=== PATIENT | male | born 1985 | race American Indian/Alaskan Native ===

== ENCOUNTER 2018-03-28 04:41 | Emergency (ER) | payer SELFPAY ==
[2018-03-28 04:48] VITALS: O2SAT 98
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
--- NOTE | 2018-03-28 07:09 | ED PDOC ---
- ECG O2 Sat by Pulse Oximetry: 98 Medical Decision Making Medical Decision Makin:00 -Patient endorsed to me by Dr. Braga, pending crisis evaluation. 8am per Dr Waddell patient cleared for discharge. Ativan 0.5mg PO BID #3 tabs prescribed Recommended outpatient followup for further treatment Disposition - Clinical Impression Clinical Impression: Anxiety - POA Present On Arrival: None - Disposition Referrals: [facility] [Outside] Disposition: Routine/Home Disposition Time: 08:01 Condition: STABLE Additional Instructions: See therapist or psychiatrist for further testing. Return to ER for any new or worsening symptoms. Prescriptions: Lorazepam [Ativan] 0.5 mg PO BID PRN #3 tab PRN Reason: Anxiety Instructions: Anxiety, Adult (DC) Forms: [facility] (Luxembourgish)
[2018-03-28 11:36] VITALS: BP 128/84; PULSE 80; RESP 16; TEMP 98.2
== END 2018-03-28 09:30 | disposition home or self-care (01) ==
LOC: H.ER 04:41
DX: F41.9 Anxiety disorder, unspecified (principal)

== ENCOUNTER 2018-06-11 00:10 | Inpatient (IN) | payer SELFPAY ==
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
[2018-06-11 02:45] LABS: BASO # 0.1 K/uL (0.0-0.2); BASO % 0.6 % (0.0-2.0); EOS # 0.1 K/uL (0.0-0.7); EOS % 1.4 % (0.0-4.0); HEMOGLOBIN 13.8 g/dL (12.0-18.0); LYMPH # 2.1 K/uL (1.0-4.3); LYMPH % 23.5 % (20.0-40.0); MEAN CELL VOLUME 92.3 fl (80.0-94.0); MEAN CORPUSCULAR HEMOGLOBIN 31.5 pg (27.0-31.0); MEAN CORPUSCULAR HGB CONC 34.1 g/dL (33.0-37.0); MEAN PLATELET VOLUME 7.9 fl (7.2-11.7); MONO # 0.8 K/uL (0.0-0.8); MONO % 8.3 % (0.0-10.0); NEUT % 66.2 % (50.0-75.0); RBC 4.38 Mil/uL (4.40-5.90); RED CELL DISTRIBUTION WIDTH 12.8 % (11.5-14.5); WHITE BLOOD COUNT 9.1 K/uL (4.8-10.8)
[2018-06-11 02:53] LABS: ALB/GLOB RATIO 1.2 (1.0-2.1); ALBUMIN 3.4 g/dL (3.5-5.0); ALT/SGPT 26 U/L (21-72); AST/SGOT 38 U/L (17-59); BLOOD UREA NITROGEN 16 mg/dl (9-20); CALCIUM 8.6 mg/dL (8.4-10.2); GFR NON-AFRICAN AMERICAN > 60
[2018-06-11 03:59] LABS: URINE BILIRUBIN NEGATIVE (NEGATIVE); URINE BLOOD NEGATIVE (NEGATIVE); URINE CLARITY SLIGHTY-CLOUDY (Clear); URINE COLOR YELLOW (YELLOW); URINE GLUCOSE (UA) NEG (Normal); URINE LEUKOCYTE ESTERASE NEG Leu/uL (Negative); URINE PROTEIN NEGATIVE (NEGATIVE)
[2018-06-11 04:16] LABS: BARBITURATES, UR NEGATIVE (NEGATIVE); BENZODIAZEPINES, UR NEGATIVE (NEGATIVE); OPIATES, UR NEGATIVE (NEGATIVE); PHENCYCLIDINE, UR NEGATIVE (NEGATIVE)
[2018-06-11] MEDS ORDERED: DiphenhydrAMINE 50 mg/ml Inj IM PRN (05:21)
[2018-06-11] MEDS ORDERED: Alum-Mag Hydrox-Simethicone Susp (30 mL) PO PRN (05:21)
[2018-06-11] MEDS ORDERED: Magnesium Hydroxide Susp 30 ml UD PO PRN (05:21)
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
[2018-06-11 09:17] LABS: LDL CHOLESTEROL 118 mg/dL (0-129)
[2018-06-11 09:21] LABS: T4 7.77 ug/dl (5.5-11.0)
[2018-06-11 09:35] LABS: T3 1.24 nmol/L (1.49-2.60)
[2018-06-11 09:44] LABS: BLOOD UREA NITROGEN 15 mg/dl (9-20); CALCIUM 8.8 mg/dL (8.4-10.2); GFR NON-AFRICAN AMERICAN > 60; HDL CHOLESTEROL 70 MG/DL (30-70)
--- NOTE | 2018-06-11 10:30 | RAD ---
Date of service: 06/11/2018 HISTORY: admit COMPARISON: No prior. FINDINGS: LUNGS: No active pulmonary disease. PLEURA: No significant pleural effusion identified, no pneumothorax apparent. CARDIOVASCULAR: Normal. OSSEOUS STRUCTURES: No significant abnormalities. VISUALIZED UPPER ABDOMEN: Normal. OTHER FINDINGS: None. IMPRESSION: No acute cardiopulmonary disease appreciated.
--- NOTE | 2018-06-11 12:31 | CARD ---
APPROVED REPORT Date of service: 06/11/2018 EKG Measurement Heart [id number] <Conclusion> Normal sinus rhythm Normal ECG
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
[2018-06-11 21:26] VITALS: O2SAT 99
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
[2018-06-14 09:13] VITALS: RESP 18
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
[2018-06-17 10:14] VITALS: PULSE 83; TEMP 98.6
[2018-06-17 10:39] VITALS: BP 151/59
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
== END 2018-06-17 15:12 | disposition home or self-care (01) | DRG 882 ==
LOC: H.ER 00:10 → H.ERHOLD 02:04 → H.PSYCH 04:52
PROVIDERS: ADMIT Psychiatry & Neurology Psychiatry; ATTEND Psychiatry & Neurology Psychiatry
PROC: GZHZZZZ Group Psychotherapy (ICD-10-PCS; principal; 2018-06-11)
PROC: GZ58ZZZ Individual Psychotherapy, Cognitive-Behavioral (ICD-10-PCS; 2018-06-11)
DX: F43.24 Adjustment disorder with disturbance of conduct (principal); F63.9 Impulse disorder, unspecified; F41.1 Generalized anxiety disorder; F90.9 Attention-deficit hyperactivity disorder, unspecified type; G47.00 Insomnia, unspecified; R45.850 Homicidal ideations; Z79.899 Other long term (current) drug therapy

== ENCOUNTER 2018-06-28 10:07 | Emergency (ER) | payer SELFPAY ==
[2018-06-28 10:19] VITALS: BP 128/77; PULSE 92; RESP 20; TEMP 98.2; O2SAT 98
[2018-06-28 10:20] VITALS: BMI 20.7
[2018-06-28 12:20] LABS: BASO % 0.3 % (0.0-2.0); EOS # 0.1 K/uL (0.0-0.7); HEMOGLOBIN 14.9 g/dL (12.0-18.0); LYMPH # 1.5 K/uL (1.0-4.3); LYMPH % 13.3 % (20.0-40.0); MEAN CELL VOLUME 91.5 fl (80.0-94.0); MEAN CORPUSCULAR HEMOGLOBIN 32.3 pg (27.0-31.0); MEAN CORPUSCULAR HGB CONC 35.3 g/dL (33.0-37.0); MEAN PLATELET VOLUME 7.6 fl (7.2-11.7); MONO % 9.4 % (0.0-10.0); NEUT # 8.4 K/uL (1.8-7.0); NRBC % 0.2 % (0.0-0.0); RBC 4.6 Mil/uL (4.40-5.90); RED CELL DISTRIBUTION WIDTH 12.8 % (11.5-14.5)
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
[2018-06-28 12:49] LABS: SQUAMOUS EPITHIAL < 1 /hpf (0-5); URINE BACTERIA RARE (<OCC); URINE BILIRUBIN NEGATIVE (NEGATIVE); URINE BLOOD NEGATIVE (NEGATIVE); URINE CLARITY SLIGHTY-CLOUDY (Clear); URINE COLOR YELLOW (YELLOW); URINE GLUCOSE (UA) NEG (Normal); URINE LEUKOCYTE ESTERASE NEG Leu/uL (Negative); URINE PROTEIN NEGATIVE (NEGATIVE)
[2018-06-28 12:52] LABS: ALB/GLOB RATIO 1.1 (1.0-2.1); ALBUMIN 3.7 g/dL (3.5-5.0); ALT/SGPT 27 U/L (21-72); AST/SGOT 35 U/L (17-59); BLOOD UREA NITROGEN 12 mg/dl (9-20); CALCIUM 8.9 mg/dL (8.4-10.2); GFR AFRICAN-AMERICAN > 60; GFR NON-AFRICAN AMERICAN > 60
[2018-06-28 13:13] LABS: BARBITURATES, UR NEGATIVE (NEGATIVE); BENZODIAZEPINES, UR NEGATIVE (NEGATIVE); OPIATES, UR NEGATIVE (NEGATIVE); PHENCYCLIDINE, UR NEGATIVE (NEGATIVE)
== END 2018-06-28 13:31 | disposition home or self-care (01) ==
LOC: H.ER 10:07
DX: F41.1 Generalized anxiety disorder (principal); F32.9 Major depressive disorder, single episode, unspecified
CPT/HCPCS: 80053; 81003; 85025; 99283; G0480

== ENCOUNTER 2018-08-15 14:34 | Inpatient (IN) | payer MEDICAID ==
[2018-08-15 14:34] VITALS: BMI 20.7
--- NOTE | 2018-08-15 15:13 | ED PDOC ---
HPI: Psych/Substance Abuse Chief Complaint (Provider): Psychiatric Evaluation History Per: Patient History/Exam Limitations: no limitations Onset/Duration Of Symptoms: Days Current Symptoms Are (Timing): Still Present Suicide/Self Injury Attempted (Context): None Associated Symptoms: Anxiety, Depression, Suicidal Thoughts Involuntary Hold By: None Additional History Per: Prior Records Additional Complaint(s): 33 y/o male with PMHx of anxiety presents to the ED complaining of suicidal ideation. Patient states that yesterday his mom . Since then he has been feeling depressed and anxious. Initially patient was seen at [facility] and given a shot of Ativan and PO Xanax. Symptoms returned when he was at home, prompting him to go to [facility], where he was discharged without any medication. Patient states he is still feeling suicidal. Reports he wants to jump off a building. Otherwise he denies any homicidal ideation or hallucinations. He admits that current symptoms are consistent with prior episodes of anxiety. <Saul Dias E - Last Filed: 08/15/18 23:39> <Poornima Casey F - Last Filed: 08/16/18 15:42> Time Seen by Provider: 08/15/18 14:47 Chief Complaint (Nursing): Psychiatric Evaluation Supervising Attending Note - Attestation: I have personally seen and examined this patient.: No I have reviewed all pertinent clinical information, including history, physical exam and plan: Yes <Poornima Casey F - Last Filed: 08/16/18 15:42> Past Medical History Reviewed: Historical Data, Nursing Documentation, Vital Signs Vital Signs: Last Vital Signs Temp 98 F 08/15/18 14:39 Pulse 119 H 08/15/18 14:39 Resp 16 08/15/18 14:39 BP 145/94 H 08/15/18 14:39 Pulse Ox 100 08/15/18 14:39 - Medical History PMH: Anxiety, Depression Denies: Diabetes, Hepatitis, HIV, HTN, Chronic Kidney Disease, Seizures, Sexually Transmitted Disease - Family History Family History: States: Unknown Family Hx - Social History Alcohol: Social Drugs: Denies - Immunization History Hx Tetanus Toxoid Vaccination: Yes Hx Influenza Vaccination: No Hx Pneumococcal Vaccination: No <Saul Dias - Last Filed: 08/15/18 23:39> Vital Signs: Last Vital Signs Temp 97.3 F L 08/16/18 09:00 Pulse 69 08/16/18 09:00 Resp 18 08/16/18 09:00 BP 127/86 08/16/18 09:00 Pulse Ox 100 08/15/18 23:39 <Poornima Casey F - Last Filed: 08/16/18 15:42> - Home Medications Home Medications: Ambulatory Orders Medication Instructions Recorded Methylphenidate HCl [Concerta] 54 mg PO DAILY 07/01/18 Escitalopram [Lexapro] 20 mg PO DAILY 08/15/18 - Allergies Allergies/Adverse Reactions: Allergies Allergy/AdvReac Type Severity Reaction Status Date / Time No Known Allergies Allergy Verified 08/15/18 13:19 Review of Systems ROS Statement: Except As Marked, All Systems Reviewed And Found Negative Constitutional: Negative for: Fever Cardiovascular: Negative for: Chest Pain Respiratory: Negative for: Shortness of Breath Gastrointestinal: Negative for: Nausea, Vomiting Neurological: Negative for: Weakness, Headache Psych: Positive for: Anxiety, Depression, Suicidal ideation. Negative for: Othe r (homicidal ideation, hallucinations) <Saul Dias - Last Filed: 08/15/18 23:39> Physical Exam - Reviewed Nursing Documentation Reviewed: Yes Vital Signs Reviewed: Yes - Physical Exam Appears: Positive for: Non-toxic, No Acute Distress Head Exam: Positive for: ATRAUMATIC, NORMOCEPHALIC Skin: Positive for: Normal Color, Warm, Dry Eye Exam: Positive for: Normal appearance Neck: Positive for: Normal, Painless ROM Cardiovascular/Chest: Positive for: Other (Tachycardic, regular rhythm). Negative for: Murmur Respiratory: Positive for: Normal Breath Sounds. Negative for: Accessory Muscle Use, Respiratory Distress Gastrointestinal/Abdominal: Positive for: Soft. Negative for: Tenderness, Distended Extremity: Positive for: Normal ROM. Negative for: Pedal Edema, Calf Tenderness Neurologic/Psych: Positive for: Alert, Oriented (x3), Other (Crying, appears anxious) <Saul Dias - Last Filed: 08/15/18 23:39> - Laboratory Results Result Diagrams: 08/15/18 18:00 08/15/18 18:00 - ECG ECG: Positive for: Interpreted By Me ECG Rhythm: Positive for: Sinus Rhythm. Negative for: ST/T Changes Rate: 86 O2 Sat by Pulse Oximetry: 100 (RA) Pulse Ox Interpretation: Normal - Progress ED Course And Treament: attraction worker discussed w/ Dr. Waddell, patient will be admitted for depression. Labs ordered. <Saul Dias - Last Filed: 08/15/18 23:39> - Laboratory Results Result Diagrams: 08/15/18 18:00 08/15/18 18:00 <Poornima Casey F - Last Filed: 08/16/18 15:42> Medical Decision Making Medical Decision Making: Impression: Psychiatric evaluation Initial Plan: --Urine drug screen --Crisis evaluation --Placed on 1:1 observation as per suicide precautions Scribe Attestation: Documented by Keren Abraham, acting as a scribe for Saul Dias PA-C. Provider Scribe Attestation: All medical record entries made by the Scribe were at my direction and personally dictated by me. I have reviewed the chart and agree that the record accurately reflects my personal performance of the history, physical exam, medical decision making, and the department course for this patient. I have also personally directed, reviewed, and agree with the discharge instructions and disposition. <Saul Dias - Last Filed: 08/15/18 23:39> Disposition - Patient ED Disposition Is Patient to be Admitted: Yes Counseled Patient/Family Regarding: Diagnosis - Disposition Disposition Time: 19:23 - Pt Status Changed To: Hospital Disposition Of: Inpatient - Admit Certification Admit to Inpatient:: After my assessment, the patient will require hospitalization for at least two midnights. This is because of the severity of symptoms shown, intensity of services needed, and/or the medical risk in this patient being treated as an outpatient. - POA Present On Arrival: None <Saul Dias - Last Filed: 08/15/18 23:39> <Poornima Casey - Last Filed: 08/16/18 15:42> - Clinical Impression Clinical Impression: Depression - Disposition Condition: STABLE - PA / NURSE RECRUITER / Resident Statement MD/DO has reviewed & agrees with the documentation as recorded. <Saul Dias - Last Filed: 08/15/18 23:39>
[2018-08-15 16:53] LABS: BENZODIAZEPINES, UR NEGATIVE (NEGATIVE)
[2018-08-15 16:54] LABS: BARBITURATES, UR NEGATIVE (NEGATIVE); OPIATES, UR NEGATIVE (NEGATIVE); PHENCYCLIDINE, UR NEGATIVE (NEGATIVE)
[2018-08-15 18:10] LABS: BASO # 0.1 K/uL (0.0-0.2); BASO % 0.9 % (0.0-2.0); EOS # 0.1 K/uL (0.0-0.7); EOS % 0.8 % (0.0-4.0); HEMOGLOBIN 16.9 g/dL (12.0-18.0); LYMPH % 21.9 % (20.0-40.0); MEAN CELL VOLUME 92.3 fl (80.0-94.0); MEAN CORPUSCULAR HEMOGLOBIN 31.6 pg (27.0-31.0); MEAN CORPUSCULAR HGB CONC 34.3 g/dL (33.0-37.0); MONO # 0.7 K/uL (0.0-0.8); MONO % 7.4 % (0.0-10.0); NEUT # 6.3 K/uL (1.8-7.0); RBC 5.36 Mil/uL (4.40-5.90); RED CELL DISTRIBUTION WIDTH 12.8 % (11.5-14.5); WHITE BLOOD COUNT 9.1 K/uL (4.8-10.8)
[2018-08-15 18:17] LABS: ALB/GLOB RATIO 1.1 (1.0-2.1); ALT/SGPT 52 U/L (21-72); AST/SGOT 40 U/L (17-59); BLOOD UREA NITROGEN 7 mg/dl (9-20); CALCIUM 9.6 mg/dL (8.4-10.2); GFR NON-AFRICAN AMERICAN > 60
--- NOTE | 2018-08-15 19:02 | RAD ---
Date of service: 08/15/2018 HISTORY: clearance COMPARISON: Chest radiograph dated 06/11/2018. FINDINGS: LUNGS: No active pulmonary disease. PLEURA: No significant pleural effusion identified, no pneumothorax apparent. CARDIOVASCULAR: Normal. OSSEOUS STRUCTURES: No significant abnormalities. VISUALIZED UPPER ABDOMEN: Normal. OTHER FINDINGS: None. IMPRESSION: No active disease.
[2018-08-15] MEDS ORDERED: Alum-Mag Hydrox-Simethicone Susp (30 mL) PO PRN (22:24)
[2018-08-15] MEDS ORDERED: Magnesium Hydroxide Susp 30 ml UD PO PRN (22:24)
--- NOTE | 2018-08-15 22:46 | PCM.BM ---
Treatment Plan Problems - Problems identified on initial assessmt Altered Sleep Pattern Date Initiated: 08/15/18 Time Initiated: 22:45 Assessment reference: NA Status: Active Treatment assets and liabiliti Patient Assests: cooperative, motivated, ADL independent, physically healthy, negotiates basic needs, cognitively intact Patient Liabilities: other ( of the mother) - Milieu Protocol Maintain good personal hygiene: daily Remind patient to perform daily oral care, every shift Encourage regular showers, every shift Assist patient to perform ADL's Conduct patient checks and document Observation sheet: Q15 minutes Maintain personal safety: every shift Educate patient to report safety concerns to staff, every shift Monitor environment for contraband/sharps Medication safety: Monitor for expected outcome, potential side effects: every shift, Assess barriers to learning: every shift, Assess readiness for medication education: every shift
[2018-08-15 23:40] VITALS: O2SAT 100
--- NOTE | 2018-08-16 08:36 | CARD ---
APPROVED REPORT Date of service: 08/15/2018 EKG Measurement Heart [id number] <Conclusion> Normal sinus rhythm Normal ECG
[2018-08-16 08:58] LABS: T4 6.07 ug/dl (5.5-11.0)
--- NOTE | 2018-08-16 14:37 | CP.PCM.CON ---
History of Present Illness - History of Present Illness History of Present Illness: Medical clearance for psychiatric patient. cc: hemorrhoids and left axilla rash HPI: 33 yo pmh none here for psychiatric condition complaining of right axilla rash and itching. He has had this for 1 week. He denies recent shaving of the area. Last time he shaved his left arm axilla was 1 year ago. He has not had this problem before. He denies fever, chills. He denies draining at the site. He does have tenderness and itching. PMH: none PSH: hernia age 4 months FH: mother and father HTN Father also has DM-2 SH: smoker currently cigs Counseled to quit by me social alcohol no drugs Allergies: nkda Meds: concerta Review of Systems - Review of Systems All systems: reviewed and no additional remarkable complaints except Review of Systems: except HPI Past Patient History - Infectious Disease Hx of Infectious Diseases: None - Past Medical History & Family History Past Medical History?: No - Past Social History Smoking Status: Heavy Smoker > 10 Cigarettes Daily Alcohol: Social Drugs: Denies - CARDIAC Hx Cardiac Disorders: No Hx Hypertension: No - PULMONARY Hx Tuberculosis: No - NEUROLOGICAL HX Cerebrovascular Accident: No Hx Seizures: No - HEENT Hx HEENT Problems: No - RENAL Hx Chronic Kidney Disease: No - ENDOCRINE/METABOLIC Hx Endocrine Disorders: No - HEMATOLOGICAL/ONCOLOGICAL Hx Cancer: No Hx Human Immunodeficiency Virus (HIV): No - INTEGUMENTARY Hx Dermatological Problems: No - MUSCULOSKELETAL/RHEUMATOLOGICAL Hx Musculoskeletal Disorders: No - GASTROINTESTINAL Hx Gastrointestinal Disorders: No - GENITOURINARY/GYNECOLOGICAL Hx Sexually Transmitted Disorders: No - PSYCHIATRIC Hx Anxiety: Yes Hx Depression: Yes - SURGICAL HISTORY Hx Surgeries: Yes Hx Herniorrhaphy: Yes (4 months old) - ANESTHESIA Hx Anesthesia: Yes Hx Anesthesia Reactions: No Hx Malignant Hyperthermia: No Meds Allergies/Adverse Reactions: Allergies Allergy/AdvReac Type Severity Reaction Status Date / Time No Known Allergies Allergy Verified 08/15/18 13:19 - Medications Medications: Current Medications Acetaminophen (Tylenol 325mg Tab) 650 mg PO Q4 PRN PRN Reason: Pain, moderate (4-7) Al Hydrox/Mg Hydrox/Simethicone (Maalox Plus 30 Ml) 30 ml PO Q4 PRN PRN Reason: Dyspepsia Diphenhydramine HCl (Benadryl) 50 mg PO HS PRN PRN Reason: insomnia Last Admin: 08/15/18 22:56 Dose: 50 mg Escitalopram Oxalate (Lexapro) 10 mg PO DAILY ADAN Last Admin: 08/16/18 12:08 Dose: 10 mg Lorazepam (Ativan) 1 mg PO Q8 PRN PRN Reason: Anxiety/Agitation Magnesium Hydroxide (Milk Of Magnesia) 30 ml PO HS PRN PRN Reason: Constipation Nicotine (Nicoderm Cq) 1 patch TD DAILY ADAN Last Admin: 08/16/18 12:07 Dose: 1 patch Trimethoprim/Sulfamethoxazole (Bactrim Ds Tab) 1 tab PO Q12 ADAN; Protocol Physical Exam - Constitutional Appears: Well, No Acute Distress - Head Exam Head Exam: ATRAUMATIC, NORMAL INSPECTION - Eye Exam Eye Exam: Normal appearance - ENT Exam ENT Exam: Mucous Membranes Moist - Respiratory Exam Respiratory Exam: Clear to Auscultation Bilateral, NORMAL BREATHING PATTERN. ab sent: Rales, Rhonchi, Wheezes - Cardiovascular Exam Cardiovascular Exam: REGULAR RHYTHM, +S1, +S2 - GI/Abdominal Exam GI & Abdominal Exam: Normal Bowel Sounds, Soft. absent: Tenderness - Extremities Exam Additional comments: left axila - redness and 1-1.5 cm tender firm nodule with associated redness no drainage - Back Exam Back exam: NORMAL INSPECTION - Neurological Exam Neurological exam: Alert, Oriented x3 - Psychiatric Exam Psychiatric exam: Normal Affect - Skin Skin Exam: Normal Color Results - Vital Signs Recent Vital Signs: Last Vital Signs Temp 97.3 F L 08/16/18 09:00 Pulse 69 08/16/18 09:00 Resp 18 08/16/18 09:00 BP 127/86 08/16/18 09:00 Pulse Ox 100 08/15/18 23:39 - Labs Result Diagrams: 08/15/18 18:00 08/15/18 18:00 Labs: Laboratory Results - last 24 hr 08/15/18 08/15/18 08/15/18 15:41 18:00 18:00 WBC 9.1 RBC 5.36 Hgb 16.9 D Hct 49.5 MCV 92.3 MCH 31.6 H MCHC 34.3 RDW 12.8 Plt Count 335 MPV 8.0 Neut % (Auto) 69.0 Lymph % (Auto) 21.9 Morgan % (Auto) 7.4 Eos % (Auto) 0.8 Baso % (Auto) 0.9 Neut # (Auto) 6.3 Lymph # (Auto) 2.0 Morgan # (Auto) 0.7 Eos # (Auto) 0.1 Baso # (Auto) 0.1 Sodium 139 Potassium 3.9 Chloride 102 Carbon Dioxide 29 Anion Gap 12 BUN 7 L Creatinine 0.7 L Est GFR ( Amer) > 60 Est GFR (Non-Af Amer) > 60 Random Glucose 85 Hemoglobin A1c Calcium 9.6 Total Bilirubin 0.5 AST 40 ALT 52 Alkaline Phosphatase 72 Total Protein 7.7 Albumin 4.0 Globulin 3.7 Albumin/Globulin Ratio 1.1 Triglycerides Cholesterol LDL Cholesterol Direct HDL Cholesterol Thyroxine (T4) TSH 3rd Generation Urine Opiates Screen Negative Urine Methadone Screen Negative Ur Barbiturates Screen Negative Ur Phencyclidine Scrn Negative Ur Amphetamines Screen Negative U Benzodiazepines Scrn Negative U Oth Cocaine Metabols Negative U Cannabinoids Screen Negative Alcohol, Quantitative < 10 08/16/18 08/16/18 08:10 08:10 WBC RBC Hgb Hct MCV MCH MCHC RDW Plt Count MPV Neut % (Auto) Lymph % (Auto) Morgan % (Auto) Eos % (Auto) Baso % (Auto) Neut # (Auto) Lymph # (Auto) Morgan # (Auto) Eos # (Auto) Baso # (Auto) Sodium Potassium Chloride Carbon Dioxide Anion Gap BUN Creatinine Est GFR ( Amer) Est GFR (Non-Af Amer) Random Glucose Hemoglobin A1c 5.2 Calcium Total Bilirubin AST ALT Alkaline Phosphatase Total Protein Albumin Globulin Albumin/Globulin Ratio Triglycerides 137 D Cholesterol 236 H LDL Cholesterol Direct 115 HDL Cholesterol 78 H Thyroxine (T4) 6.07 TSH 3rd Generation 0.62 Urine Opiates Screen Urine Methadone Screen Ur Barbiturates Screen Ur Phencyclidine Scrn Ur Amphetamines Screen U Benzodiazepines Scrn U Oth Cocaine Metabols U Cannabinoids Screen Alcohol, Quantitative Assessment & Plan - Assessment and Plan (Free Text) Assessment: 33 yo male pmh none here for psychiatric condition 1. left axilla carbuncle- without fever, leucocytosis start bactrim no allergies and will cover mrsa 2. hemorrhoids anusol 3 Psychiatric conditions management by psych
[2018-08-16] MEDS: Tmp-Smz 800 mg-160 mg DS Tab PO SCH ×2 (15:12→21:01)
[2018-08-16] MEDS: Hydrocortisone 2.5% (Rectal) CREAM PR SCH (17:58)
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
--- NOTE | 2018-08-17 08:49 | PCM.PYCHPN ---
Psychiatric Progress Note - Psychiatric Progress Note Patient seen today, length of contact: pt seen and evaluated. Patient Chief Complaint: pt is less depressed and less anxious and denies side efects to meds .pt still has poor insight and need further stabilization. Medication Change: No Medical Record Reviewed: Yes Mental Status Examination - Cognitive Function Orientation: Person, Place, Situation, Time Memory: Intact Attention: Poor Concentration: Poor Association: WNL Fund of Knowledge: WNL - Mood Mood: Depressed - Affect Affect: Constricted - Formal Thought Process Formal Thought Process: No Impairment - Suicidal Ideation Suicidal Ideation: No - Homicidal Ideation Homicidal Ideation: No Goal/Treatment Plan - Goal/Treatment Plan Progress Toward Problem(s) and Goals/Treatment Plan: will continue to titrate meds to stabilize the ot and engage pt in therapy
[2018-08-17] MEDS: Tmp-Smz 800 mg-160 mg DS Tab PO SCH ×2 (09:57→21:11)
[2018-08-17] MEDS: Hydrocortisone 2.5% (Rectal) CREAM PR SCH ×2 (09:58→16:18)
[2018-08-18] MEDS: Tmp-Smz 800 mg-160 mg DS Tab PO SCH (09:03)
[2018-08-18] MEDS: Hydrocortisone 2.5% (Rectal) CREAM PR SCH ×2 (09:06→16:54)
--- NOTE | 2018-08-18 14:09 | PCM.PYCHPN ---
Psychiatric Progress Note - Psychiatric Progress Note Patient seen today, length of contact: pt seen and evaluated. Patient Chief Complaint: pt has been more irritible and more labile and getting angry and wants to be d/c .pt still has poor insight and need further stabilization. Medication Change: No Medical Record Reviewed: Yes Mental Status Examination - Cognitive Function Orientation: Person, Place, Situation, Time Memory: Intact Attention: Poor Concentration: Poor Association: WNL Fund of Knowledge: WNL - Mood Mood: Depressed - Affect Affect: Constricted - Formal Thought Process Formal Thought Process: No Impairment - Suicidal Ideation Suicidal Ideation: No - Homicidal Ideation Homicidal Ideation: No Goal/Treatment Plan - Goal/Treatment Plan Progress Toward Problem(s) and Goals/Treatment Plan: will continue to titrate meds and increase trileptal to 300 mg bid to stabilize the pt and engage pt in therapy
[2018-08-18 15:51] VITALS: PULSE 71; RESP 20; TEMP 97.7
[2018-08-18 15:52] VITALS: BP 134/82
== END 2018-08-18 11:40 | disposition home or self-care (01) | DRG 426 ==
LOC: H.ER 14:34 → H.ERHOLD 19:23 → H.PSYCH 21:54
PROVIDERS: ADMIT Psychiatry & Neurology Psychiatry; ATTEND Psychiatry & Neurology Psychiatry
PROC: GZHZZZZ Group Psychotherapy (ICD-10-PCS; principal; 2018-08-15)
PROC: GZ51ZZZ Individual Psychotherapy, Behavioral (ICD-10-PCS; 2018-08-15)
DX: F32.9 Major depressive disorder, single episode, unspecified (principal); F90.9 Attention-deficit hyperactivity disorder, unspecified type; R45.851 Suicidal ideations; F41.9 Anxiety disorder, unspecified; Z79.899 Other long term (current) drug therapy

== ENCOUNTER 2018-11-18 20:09 | Emergency (ER) | payer MEDICAID, OTHER ==
[2018-11-18 20:10] VITALS: BMI 20.7
--- NOTE | 2018-11-18 20:54 | ED PDOC ---
Lower Extremity Pain/Injury Time Seen by Provider: 11/18/18 20:20 Chief Complaint (Nursing): Lower Extremity Problem/Injury Chief Complaint (Provider): Right leg swelling History Per: Patient History/Exam Limitations: no limitations Onset/Duration Of Symptoms: Days Current Symptoms Are (Timing): Still Present Additional Complaint(s): 33 year old male presents to the ED for an evaluation of swelling on his right leg and foot onset one week ago. Denies any trauma, injury or fall. PMD: No family provider Past Medical History Reviewed: Historical Data, Nursing Documentation, Vital Signs Vital Signs: Last Vital Signs Temp 98.3 F 11/18/18 20:13 Pulse 118 H 11/18/18 20:13 Resp 16 11/18/18 20:13 BP 126/78 11/18/18 20:13 Pulse Ox 98 11/18/18 20:13 - Medical History PMH: Anxiety, Depression, Hiatal Hernia, Seizures Denies: Diabetes, Hepatitis, HIV, HTN, Chronic Kidney Disease, Sexually Transmitted Disease - Family History Family History: States: Unknown Family Hx - Immunization History Hx Tetanus Toxoid Vaccination: No Hx Influenza Vaccination: Yes Hx Pneumococcal Vaccination: No - Home Medications Home Medications: Ambulatory Orders Medication Instructions Recorded Ziprasidone [Geodon Cap] 20 mg PO TID #45 cap 08/30/18 Divalproex [Depakote] 750 mg PO HS 10/31/18 traZODone [Desyrel] 100 mg PO HS #30 tab 11/06/18 - Allergies Allergies/Adverse Reactions: Allergies Allergy/AdvReac Type Severity Reaction Status Date / Time No Known Allergies Allergy Verified 11/14/18 19:15 Review of Systems ROS Statement: Except As Marked, All Systems Reviewed And Found Negative Constitutional: Negative for: Fever, Chills Respiratory: Negative for: Cough, Shortness of Breath Musculoskeletal: Positive for: Foot Pain (right) Skin: Negative for: Rash Neurological: Negative for: Weakness, Numbness Physical Exam - Reviewed Nursing Documentation Reviewed: Yes Vital Signs Reviewed: Yes - Physical Exam Appears: Positive for: Non-toxic, No Acute Distress Head Exam: Positive for: ATRAUMATIC, NORMAL INSPECTION, NORMOCEPHALIC Skin: Positive for: Normal Color, Warm, Dry. Negative for: Rash Eye Exam: Positive for: Normal appearance Extremity: Positive for: Normal ROM, Tenderness, Swelling (soft tissue ), Other (negative for kiana sign). Negative for: Pedal Edema, Deformity Neurologic/Psych: Positive for: Alert, Oriented (x3). Negative for: Motor/Senso ry Deficits - ECG O2 Sat by Pulse Oximetry: 98 (RA) Pulse Ox Interpretation: Normal - Progress ED Course And Treament: XRY OF TIB-FIB: NEG FOR TUMOR Medical Decision Making Medical Decision Making: Time: 2025 Initial impression: right leg swelling Initial plan: Tibia fibula right [rad] Reevaluation ------- Scribe Attestation: Documented by Marleni Lucas, acting as a scribe for Danie Rob PA-C. Provider Scribe Attestation: All medical record entries made by the Scribe were at my direction and personally dictated by me. I have reviewed the chart and agree that the record accurately reflects my personal performance of the history, physical exam, medical decision making, and the department course for this patient. I have also personally directed, reviewed, and agree with the discharge instructions and disposition. Disposition - Clinical Impression Clinical Impression: Soft tissue swelling - Patient ED Disposition Is Patient to be Admitted: No - Disposition Referrals: [facility] [Outside] Patrice Chopra MD [Staff Provider] - Disposition Time: 20:52 Condition: FAIR Instructions: [place] Forms: Geno (Guyanese)
[2018-11-18 21:08] VITALS: BP 112/80; PULSE 89; RESP 18; TEMP 98
[2018-11-18 21:56] VITALS: O2SAT 98
--- NOTE | 2018-11-19 15:43 | RAD ---
Date of service: 11/18/2018 PROCEDURE: Radiographs of the right tibia and fibula. HISTORY: RIGHT LEG SWELLING COMPARISON: None available TECHNIQUE: Frontal and lateral views obtained. FINDINGS: BONES: No fracture or destructive lesion. JOINT SPACES: Unremarkable. OTHER FINDINGS: None. IMPRESSION: Unremarkable radiographs of the right tibia and fibula.
== END 2018-11-18 21:07 | disposition home or self-care (01) ==
LOC: H.ER 20:09
DX: M79.89 Other specified soft tissue disorders (principal); Z86.59 Personal history of other mental and behavioral disorders

== ENCOUNTER 2019-01-08 17:10 | Emergency (ER) | payer MEDICAID, OTHER ==
[2019-01-08 17:10] VITALS: BMI 20.7
[2019-01-08 17:21] VITALS: TEMP 98.8
--- NOTE | 2019-01-08 17:48 | ED PDOC ---
HPI: Psych/Substance Abuse Time Seen by Provider: 01/08/19 17:30 Chief Complaint (Nursing): Psychiatric Evaluation Chief Complaint (Provider): Psychiatric Evaluation History Per: Patient History/Exam Limitations: no limitations Onset/Duration Of Symptoms: Days (x 1) Current Symptoms Are (Timing): Still Present Suicide/Self Injury Attempted (Context): None Modifying Factor(s): None Associated Symptoms: Anger Additional Complaint(s): 33 year old male with a history of bipolar disorder with psychotic features presents to the ED for evaluation. Patient was just discharged from inpatient care at [facility]'s psychiatric floor with prescriptions for Depakote 1500 mg TID and Geodon 20 mg TID. He is unable to fill medications because his insurance will not cover them. Currently, he is increasingly angry. Denies suicidal and homicidal ideation. PMD: none provided Past Medical History Reviewed: Historical Data, Nursing Documentation, Vital Signs Vital Signs: Last Vital Signs Temp 98.8 F 01/08/19 17:18 Pulse 125 H 01/08/19 17:18 Resp 16 01/08/19 17:18 BP 139/88 01/08/19 17:18 Pulse Ox 99 01/08/19 17:18 - Medical History PMH: Anxiety, Bipolar Disorder, Depression, Hiatal Hernia, Seizures Denies: Diabetes, Hepatitis, HIV, HTN, Chronic Kidney Disease, Sexually Transmitted Disease - Surgical History Surgical History: No Surg Hx - Family History Family History: States: Unknown Family Hx - Immunization History Hx Tetanus Toxoid Vaccination: No Hx Influenza Vaccination: Yes Hx Pneumococcal Vaccination: No - Home Medications Home Medications: Ambulatory Orders Medication Instructions Recorded Methylphenidate HCl [Concerta] 54 mg PO DAILY 12/25/18 Divalproex [Depakote DR] 500 mg PO Q8 01/08/19 Ziprasidone HCl [Geodon] 80 mg PO BID 01/08/19 - Allergies Allergies/Adverse Reactions: Allergies Allergy/AdvReac Type Severity Reaction Status Date / Time No Known Allergies Allergy Verified 01/08/19 17:17 Review of Systems ROS Statement: Except As Marked, All Systems Reviewed And Found Negative Psych: Positive for: Other (anger). Negative for: Suicidal ideation (and homicidal ideation) Physical Exam - Reviewed Nursing Documentation Reviewed: Yes Vital Signs Reviewed: Yes - Physical Exam Appears: Positive for: No Acute Distress (calm and cooperative ) Head Exam: Positive for: ATRAUMATIC, NORMAL INSPECTION, NORMOCEPHALIC Skin: Positive for: Normal Color, Warm, Dry. Negative for: Rash Eye Exam: Positive for: EOMI, Normal appearance, PERRL Neck: Positive for: Normal, Painless ROM, Supple Cardiovascular/Chest: Positive for: Regular Rate, Rhythm. Negative for: Murmur Respiratory: Positive for: Normal Breath Sounds. Negative for: Wheezing, Respiratory Distress Gastrointestinal/Abdominal: Positive for: Normal Exam, Soft. Negative for: Tenderness Extremity: Positive for: Normal ROM (upper and lower extremities). Negative for: Deformity Neurologic/Psych: Positive for: Alert, Oriented (x 3). Negative for: Motor/Sensory Deficits - ECG O2 Sat by Pulse Oximetry: 99 (RA) Pulse Ox Interpretation: Normal Medical Decision Making Medical Decision Makin:40 Impression: psychiatric evaluation --Geodon 20 mg PO Scribe Attestation: Documented by Cesilia Florentino acting as a scribe for Poornima Casey MD Provider Scribe Attestation: All medical record entries made by the Scribe were at my direction and personally dictated by me. I have reviewed the chart and agree that the record accurately reflects my personal performance of the history, physical exam, medical decision making, and the department course for this patient. I have also personally directed, reviewed, and agree with the discharge instructions and disposition. Disposition - Clinical Impression Clinical Impression: Bipolar disorder - Disposition Disposition: Routine/Home Disposition Time: 20:25 Condition: IMPROVED Additional Instructions: FOLLOW-UP WITH PSYCH ADVISED. Instructions: Bipolar Disorder Forms: Songza (Kiswahili)
[2019-01-08 20:10] VITALS: BP 127/81; PULSE 102; RESP 18
[2019-01-14 16:53] VITALS: O2SAT 99
== END 2019-01-08 20:30 | disposition home or self-care (01) ==
LOC: H.ER 17:10
DX: F31.9 Bipolar disorder, unspecified (principal); Z86.59 Personal history of other mental and behavioral disorders; Z00.8 Encounter for other general examination

== ENCOUNTER 2019-03-14 14:36 | Emergency (ER) | payer MEDICAID, OTHER ==
[2019-03-14 14:37] VITALS: BMI 22.5
[2019-03-14 14:52] VITALS: O2SAT 100
--- NOTE | 2019-03-14 15:04 | ED PDOC ---
HPI: Psych/Substance Abuse Time Seen by Provider: 03/14/19 14:58 Chief Complaint (Nursing): Psychiatric Evaluation Chief Complaint (Provider): Psychiatric Evaluation History Per: Patient History/Exam Limitations: no limitations Onset/Duration Of Symptoms: Days Current Symptoms Are (Timing): Still Present Additional Complaint(s): 33 y/o male with PMHx of Bipolar Disorder presents to the ED for psychiatric evaluation. Patient was recently admitted in January 2019 for depression. Patient notes that over the last week he has been feeling increasingly depressed and formulated a suicidal plan to take his Depakot medications that he takes for seizures and overdose. Patient reports of being upset that he has been sleeping on Socialtyze. PMD: no provider Past Medical History Reviewed: Historical Data, Nursing Documentation, Vital Signs Vital Signs: Last Vital Signs Temp 99.0 F 03/14/19 14:50 Pulse 78 03/14/19 14:50 Resp 19 03/14/19 14:50 BP 123/86 03/14/19 14:50 Pulse Ox 100 03/14/19 14:50 - Medical History PMH: Anxiety, Bipolar Disorder, Depression, Hiatal Hernia, Personality Disorder, Seizures Denies: Diabetes, Hepatitis, HIV, HTN, Chronic Kidney Disease, Sexually Transmitted Disease - Surgical History Surgical History: No Surg Hx - Family History Family History: States: Unknown Family Hx - Living Arrangements Living Arrangements: Other (undomiciled) - Immunization History Hx Tetanus Toxoid Vaccination: No Hx Influenza Vaccination: Yes Hx Pneumococcal Vaccination: No - Home Medications Home Medications: Ambulatory Orders Medication Instructions Recorded Methylphenidate HCl [Concerta] 54 mg PO DAILY 12/25/18 Divalproex [Depakote DR] 500 mg PO Q8 01/08/19 Ziprasidone HCl [Geodon] 80 mg PO BID 01/08/19 ARIPiprazole [Abilify] 10 mg PO QPM #30 tab 01/30/19 Divalproex [Depakote DR] 500 mg PO BID #120 tcp 01/30/19 traZODone [Desyrel] 100 mg PO HS PRN #30 tab 01/30/19 - Allergies Allergies/Adverse Reactions: Allergies Allergy/AdvReac Type Severity Reaction Status Date / Time No Known Allergies Allergy Verified 01/08/19 17:17 Review of Systems ROS Statement: Except As Marked, All Systems Reviewed And Found Negative Psych: Positive for: Depression, Suicidal ideation Physical Exam - Reviewed Nursing Documentation Reviewed: Yes Vital Signs Reviewed: Yes - Physical Exam Appears: Positive for: Well, No Acute Distress Head Exam: Positive for: ATRAUMATIC, NORMOCEPHALIC Skin: Positive for: Normal Color, Warm, Dry Eye Exam: Positive for: Normal appearance, EOMI, PERRL ENT: Positive for: Normal ENT Inspection Neck: Positive for: Normal, Painless ROM Cardiovascular/Chest: Positive for: Regular Rate, Rhythm. Negative for: Murmur Respiratory: Positive for: Normal Breath Sounds. Negative for: Respiratory Distress Gastrointestinal/Abdominal: Positive for: Normal Exam, Soft. Negative for: Tenderness Extremity: Positive for: Normal ROM. Negative for: Deformity Neurological/Psych: Positive for: Awake, Alert, Oriented (x3). Negative for: Motor/Sensory Deficits - Laboratory Results Result Diagrams: 03/14/19 15:40 03/14/19 15:40 - ECG O2 Sat by Pulse Oximetry: 100 (RA) Pulse Ox Interpretation: Normal - Progress ED Course And Treament: SEEN BY CRISIS CLEARED BY DR. QUEEN DIAGNOSIS BIPOLAR DISORDER Medical Decision Making Medical Decision Making: Time: 1459 Impression: Psychiatric Evaluation Plan: -- Alcohol Serum -- CMP -- Urine Drug Screen -- TSH -- Valproic -- Crisis Evaluation -- 1:1 Observation -- Urinalysis Scribe Attestation: Documented by Giancarlo Rodriguez, acting as a scribe Bonnie Rob PA-C. Provider Scribe Attestation: All medical record entries made by the Scribe were at my direction and personally dictated by me. I have reviewed the chart and agree that the record accurately reflects my personal performance of the history, physical exam, medical decision making, and the department course for this patient. I have also personally directed, reviewed, and agree with the discharge instructions and disposition. Disposition - Clinical Impression Clinical Impression: Bipolar disorder - Patient ED Disposition Is Patient to be Admitted: No - Disposition Disposition: Routine/Home Disposition Time: 19:06 Condition: FAIR Instructions: Bipolar Disorder (DC)
[2019-03-14 16:00] LABS: BASO % 0.4 % (0.0-2.0); EOS # 0.1 K/uL (0.0-0.7); EOS % 0.7 % (0.0-4.0); HEMOGLOBIN 14.3 g/dL (12.0-18.0); LYMPH # 1.6 K/uL (1.0-4.3); LYMPH % 20.1 % (20.0-40.0); MEAN CELL VOLUME 93.8 fl (80.0-94.0); MEAN CORPUSCULAR HEMOGLOBIN 31.7 pg (27.0-31.0); MEAN CORPUSCULAR HGB CONC 33.8 g/dL (33.0-37.0); MEAN PLATELET VOLUME 9.2 fl (7.2-11.7); MONO # 0.5 K/uL (0.0-0.8); MONO % 6.7 % (0.0-10.0); NEUT # 5.8 K/uL (1.8-7.0); NEUT % 72.1 % (50.0-75.0); NRBC % 0.1 % (0.0-0.0); RBC 4.53 Mil/uL (4.40-5.90); RED CELL DISTRIBUTION WIDTH 13.4 % (11.5-14.5)
[2019-03-14 16:01] LABS: URINE BILIRUBIN NEGATIVE (NEGATIVE); URINE BLOOD NEGATIVE (NEGATIVE); URINE CLARITY CLEAR (Clear); URINE COLOR YELLOW (YELLOW); URINE GLUCOSE (UA) NEG (NEGATIVE); URINE LEUKOCYTE ESTERASE NEG Leu/uL (Negative); URINE PROTEIN NEGATIVE (NEGATIVE); URINE UROBILINOGEN 0.2-1.0 mg/dL (0.2-1.0)
[2019-03-14 16:12] LABS: ALB/GLOB RATIO 1.2 (1.0-2.1); ALBUMIN 3.5 g/dL (3.5-5.0); ALT/SGPT 37 U/L (21-72); AST/SGOT 31 U/L (17-59); BLOOD UREA NITROGEN 12 mg/dl (9-20); GFR NON-AFRICAN AMERICAN > 60
[2019-03-14 16:41] LABS: BARBITURATES, UR NEGATIVE (NEGATIVE); BENZODIAZEPINES, UR NEGATIVE (NEGATIVE); OPIATES, UR NEGATIVE (NEGATIVE); PHENCYCLIDINE, UR NEGATIVE (NEGATIVE)
[2019-03-14 19:27] VITALS: BP 121/67; PULSE 71; RESP 18; TEMP 98.1
== END 2019-03-14 19:38 | disposition home or self-care (01) ==
LOC: H.ER 14:36
DX: F31.9 Bipolar disorder, unspecified (principal); F41.9 Anxiety disorder, unspecified